=== PATIENT | female | born 1970 | race Caucasian/White ===

== ENCOUNTER 2020-02-21 18:52 | Emergency (ER) | payer MEDICAID ==
[~2020-02-21] VITALS: Ht 167.6 cm; Wt 62.1 kg
[2020-02-21] MEDS ORDERED: GABA-534 PO (19:15)
[2020-02-21] MEDS ORDERED: IBUP-1955 PO (19:15)
[2020-02-21] MEDS ORDERED: TRAZ150T75 PO (19:15)
[2020-02-21] MEDS ORDERED: BIRTH CONTROL (19:15)
[2020-02-21] MEDS ORDERED: ACYC800T PO (19:15)
[2020-02-21] MEDS ORDERED: ACETAMINOPHEN ES 500 MG TABLET PO ONE (19:45)
[2020-02-21] MEDS ORDERED: VANCOMYCIN IV 1,000 MG in IV DEXTROSE 5% 250 ML IV ONE (19:45)
[2020-02-21] MEDS ORDERED: METOCLOPRAMIDE HCL 10 MG/2 ML VIAL IV ONE (19:45)
[2020-02-21] MEDS ORDERED: MORPHINE SULFATE 2 MG/1 ML DISP.SYRIN IV ONE ×2 (19:45→22:45)
[2020-02-21] MEDS ORDERED: IV NORMAL SALINE 1000 ML BAG IV ONE (19:45)
[2020-02-21] MEDS ORDERED: FAMOTIDINE. 20 MG/2 ML VIAL IV ONE ×2 (19:45→19:56)
[2020-02-21] MEDS ORDERED: MORPHINE SULFATE 4 MG/1 ML DISP.SYRIN ONE (19:56)
[2020-02-21] MEDS ORDERED: ACETAMINOPHEN ES 500 MG TABLET ONE (19:56)
[2020-02-21] MEDS ORDERED: VANCOMYCIN IV 200 ML ONE (19:56)
[2020-02-21] MEDS ORDERED: METOCLOPRAMIDE HCL 10 MG/2 ML VIAL ONE (19:56)
[2020-02-21 19:59] LABS: BASOPHILS # (AUTO) 0.1 K/uL (0.0-8.0); BASOPHILS % (AUTO) 0.9 % (0.0-2.0); EOSINOPHILS # (AUTO) 0.3 K/uL (0.0-0.7); EOSINOPHILS % (AUTO) 3.3 % (0.0-7.0); HEMATOCRIT 32.5 % (31.2-41.9); HEMOGLOBIN 10.7 g/dL (10.9-14.3); LYMPHOCYTES # (AUTO) 1.9 K/uL (20.0-40.0); LYMPHOCYTES % (AUTO) 23.4 % (20.5-51.5); MEAN CORPUSCULAR HEMOGLOBIN 28.2 uug (24.7-32.8); MEAN CORPUSCULAR HGB CONC 33 g/dL (32.3-35.6); MEAN CORPUSCULAR VOLUME 85.5 fL (75.5-95.3); MONOCYTES # (AUTO) 0.6 K/uL (2.0-10.0); MONOCYTES % (AUTO) 7.6 % (0.0-11.0); NEUTROPHILS # (AUTO) 5.4 K/uL (1.8-8.9); NEUTROPHILS % (AUTO) 64.8 % (38.5-71.5); PLATELET COUNT (AUTO) 388 K/uL (179-408); RED BLOOD CELL COUNT(AUTO) 3.79 MIL/uL (3.63-4.92); WHITE BLOOD COUNT (AUTO) 8.3 K/uL (3.8-11.8)
[2020-02-21 20:01] LABS: *BILIRUBIN,URIN NEGATIVE (NEGATIVE); *BLOOD, URINE 2+ (NEGATIVE); *CLARITY,URINE TURBID (CLEAR); *COLOR,URINE YELLOW (YELLOW); *KETONES,URINE NEGATIVE (NEGATIVE); *UROBILINOGEN,URINE 0.2 E.U./dl (NORMAL); LEUKOCYTE ESTERASE ,URINE TRACE (NEGATIVE); NITRITE, URINE NEGATIVE (NEGATIVE); PH,URINE 5.5 (5.0-8.0); UGLUCOSE NEGATIVE (NEGATIVE)
[2020-02-21 20:09] LABS: CREATININE 0.9 mg/dL (0.6-1.3); POTASSIUM 3.8 mmol/L (3.5-5.1)
[2020-02-21 20:14] LABS: BILIRUBIN,DIRECT 0.1 mg/dL (0.0-0.2); BILIRUBIN,TOTAL 0.2 mg/dL (0.2-1.0); TOTAL PROTEIN, SERUM 6.7 g/dL (6.4-8.2)
[2020-02-21] MEDS ORDERED: ONDANSETRON 4 MG/2 ML VIAL IV ONE (20:15)
[2020-02-21] MEDS ORDERED: diphenhydrAMINE 50 MG/1 ML VIAL IV ONE (20:15)
[2020-02-21 20:17] LABS: BACTERIA,URINE NONE SEEN /HPF (NONE SEEN)
[2020-02-21 20:17] LABS: MAGNESIUM 1.8 mg/dL (1.8-2.4); PHOSPHOROUS 2.1 mg/dL (2.5-4.9)
[2020-02-21 20:18] LABS: *URINE HCG, QUAL NEGATIVE (NEGATIVE); SQUAMOUS EPITHELIAL CELL,UR MODERATE /HPF (NONE SEEN)
[2020-02-21] MEDS ORDERED: diphenhydrAMINE 50 MG/1 ML VIAL ONE (20:24)
[2020-02-21] MEDS ORDERED: ONDANSETRON 4 MG/2 ML VIAL ONE (20:24)
[2020-02-21] MEDS ORDERED: SWABABLE VALVE TRANSFER SET EA MC ONE (20:30)
[2020-02-21] MEDS ORDERED: NEUTRA PHOS PACKET PO ONE (20:30)
[2020-02-21] MEDS ORDERED: IOHEXOL 300MG/ML 100 ML INFUS..BTL ONE (20:30)
[2020-02-21] MEDS ORDERED: IV NORMAL SALINE 250 ML IV ONE (20:30)
[2020-02-21] MEDS ORDERED: HYDROMORPHONE 1 MG/1 ML DISP.SYRIN IV ONE (21:45)
[2020-02-21] MEDS ORDERED: HYDROMORPHONE 1 MG/1 ML DISP.SYRIN ONE (21:54)
[2020-02-21] MEDS ORDERED: NEUTRA PHOS PACKET ONE (22:11)
[2020-02-21] MEDS ORDERED: MORPHINE SULFATE 2 MG/1 ML DISP.SYRIN ONE (22:39)
--- NOTE | 2020-02-21 22:45 | NUR ---
Patient does not wish to proceed with medical care recommended by Dr. Rose. Patient given information related to possible complications, up to and including , which could occur as a result of leaving the hospital at this time. Patient verbalizes understanding of risks involved due to leaving against medical advice. Patient has signed AMA form.
--- NOTE | 2020-02-21 23:04 | NUR ---
Patient walked out of ER in stable condition. Friend is driving her home.
[2020-02-21 23:06] VITALS: BP 138/77
== END 2020-02-21 23:09 | disposition left against medical advice (07) ==
LOC: ER 18:56
DX: L03.211 Cellulitis of face (principal); K85.90 Acute pancreatitis without necrosis or infection, unspecified; K86.1 Other chronic pancreatitis; Z98.82 Breast implant status; E83.39 Other disorders of phosphorus metabolism
CPT/HCPCS: 36415; 70450; 74177; 80048; 80076; 81001; 83605; 83690; 83735; 84100; 84484; 84703; 85025; 87040 ×2; 93005; 96365; 96375; 96376; 99285; J1170; J1200; J2270 ×2; J2405; J2765; J3370; J3490; Q9967; 70030-TC; A4663; A9150; J7030; J7050

== ENCOUNTER 2020-02-22 15:06 | Emergency (ER) | payer MEDICAID ==
[~2020-02-22] VITALS: Ht 167.6 cm; Wt 62.1 kg
[~2020-02-22 15:06] MED LIST: ACYC800T PO; BIRTH CONTROL; GABA-534 PO; IBUP-1955 PO; TRAZ150T75 PO
[2020-02-22] MEDS ORDERED: HYDROMORPHONE 1 MG/1 ML DISP.SYRIN IV ONE ×2 (15:30→16:45)
[2020-02-22] MEDS ORDERED: VANCOMYCIN IV 1,000 MG in IV DEXTROSE 5% 250 ML IV ONE (15:30)
[2020-02-22] MEDS ORDERED: ONDANSETRON 4 MG/2 ML VIAL IV ONE (15:30)
[2020-02-22] MEDS ORDERED: VANCOMYCIN IV 200 ML ONE (15:39)
[2020-02-22] MEDS ORDERED: ONDANSETRON 4 MG/2 ML VIAL ONE (15:39)
[2020-02-22] MEDS ORDERED: HYDROMORPHONE 1 MG/1 ML DISP.SYRIN ONE ×2 (15:39→16:50)
[2020-02-22] MEDS ORDERED: METOCLOPRAMIDE HCL 10 MG/2 ML VIAL IV ONE (16:45)
[2020-02-22] MEDS ORDERED: diphenhydrAMINE 50 MG/1 ML VIAL IV ONE (16:45)
[2020-02-22] MEDS ORDERED: diphenhydrAMINE 50 MG/1 ML VIAL ONE (16:49)
[2020-02-22] MEDS ORDERED: METOCLOPRAMIDE HCL 10 MG/2 ML VIAL ONE (16:50)
--- NOTE | 2020-02-22 17:27 | NUR ---
Patient discharged to home in stable condition. Written and verbal after care instructions given. Patient verbalizes understanding of instructions. Stressed follow up or return to ER for worsening s/s. Pt states she has called for a ride to pick her from the ER.
--- NOTE | 2020-02-22 17:27 | NUR ---
IV removed. Catheter intact and site benign. Pressure and 4x4 gauze applied to site. No bleeding noted.
[2020-02-22 17:28] VITALS: BP 119/74
--- NOTE | 2020-02-22 17:30 | NUR ---
Pt has been discharged, pt requested to stay in room 4b until her ride arrives.
--- NOTE | 2020-02-22 18:00 | NUR ---
Pt ambulated out of ER with steady gait, NAD noted.
== END 2020-02-22 18:05 | disposition home or self-care (01) ==
LOC: ER 15:06
DX: L03.211 Cellulitis of face (principal); K86.1 Other chronic pancreatitis; Z98.82 Breast implant status; F41.9 Anxiety disorder, unspecified; Z59.0 Homelessness; Z79.899 Other long term (current) drug therapy
CPT/HCPCS: 96365; 96366; 96375; 96376; 99284; J1170 ×2; J1200; J2405; J2765; J3370; A4663

== ENCOUNTER 2020-02-25 09:55 | Emergency (ER) | payer MEDICAID ==
[~2020-02-25] VITALS: Ht 167.6 cm; Wt 59.0 kg
[2020-02-25] MEDS ORDERED: SULF1TAB48 PO (10:04)
[2020-02-25] MEDS ORDERED: CEPH-570 PO (10:04)
[2020-02-25] MEDS ORDERED: PIPERACILLIN/TAZOBACTAM/D5W 50 ML IV ONE (10:11)
[2020-02-25] MEDS ORDERED: VANCOMYCIN IV 200 ML ONE (10:11)
[2020-02-25] MEDS ORDERED: KETOROLAC TROMETHAMINE 30 MG INJ ONE ×2 (10:15→12:58)
[2020-02-25] MEDS ORDERED: ONDANSETRON 4 MG/2 ML VIAL ONE (10:15)
[2020-02-25] MEDS ORDERED: KETOROLAC TROMETHAMINE 30 MG INJ IVP ONE ×2 (10:15→13:00)
[2020-02-25] MEDS ORDERED: VANCOMYCIN IV 1,000 MG in IV DEXTROSE 5% 250 ML IV ONE (10:15)
[2020-02-25] MEDS ORDERED: PIPERACILLIN SODIUM/TAZOBACTAM 3.375 G in IV DEXTROSE 5% 50 ML IV ONE (10:15)
[2020-02-25] MEDS ORDERED: ONDANSETRON 4 MG/2 ML VIAL IV ONE (10:15)
--- NOTE | 2020-02-25 10:28 | NUR ---
ARRON LANIER CONTACTED THE INSURANCE, PLEASE SEE ARRON'S NOTES FOR DETAILS.
[2020-02-25 10:37] LABS: BASOPHILS # (AUTO) 0.1 K/uL (0.0-8.0); BASOPHILS % (AUTO) 0.8 % (0.0-2.0); EOSINOPHILS # (AUTO) 0.2 K/uL (0.0-0.7); EOSINOPHILS % (AUTO) 2.9 % (0.0-7.0); HEMATOCRIT 33.9 % (31.2-41.9); HEMOGLOBIN 11.3 g/dL (10.9-14.3); LYMPHOCYTES # (AUTO) 0.9 K/uL (20.0-40.0); LYMPHOCYTES % (AUTO) 13.2 % (20.5-51.5); MEAN CORPUSCULAR HEMOGLOBIN 28.2 uug (24.7-32.8); MEAN CORPUSCULAR HGB CONC 33 g/dL (32.3-35.6); MEAN CORPUSCULAR VOLUME 84.6 fL (75.5-95.3); MONOCYTES # (AUTO) 0.6 K/uL (2.0-10.0); MONOCYTES % (AUTO) 8.3 % (0.0-11.0); NEUTROPHILS # (AUTO) 5.3 K/uL (1.8-8.9); NEUTROPHILS % (AUTO) 74.8 % (38.5-71.5); PLATELET COUNT (AUTO) 339 K/uL (179-408); WHITE BLOOD COUNT (AUTO) 7.1 K/uL (3.8-11.8)
--- NOTE | 2020-02-25 10:38 | NUR ---
GERALD CALLED AND TALKED TO ARRON, ACCEPTING THE PT.
[2020-02-25 10:45] LABS: CREATININE 1.4 mg/dL (0.6-1.3); POTASSIUM 3.5 mmol/L (3.5-5.1)
--- NOTE | 2020-02-25 10:50 | NUR ---
pt requesting narcotic pain meds mutiple time. md notified.
[2020-02-25 10:52] LABS: BILIRUBIN,DIRECT 0.1 mg/dL (0.0-0.2); BILIRUBIN,TOTAL 0.2 mg/dL (0.2-1.0); TOTAL PROTEIN, SERUM 6.9 g/dL (6.4-8.2)
--- NOTE | 2020-02-25 10:57 | NUR ---
COLBY ESPINOZA TALKED TO DR. TIRADO PER INSURANCE REQUEST.
[2020-02-25] MEDS ORDERED: ACETAMINOPHEN ES 500 MG TABLET ONE (10:58)
--- NOTE | 2020-02-25 11:05 | NUR ---
PENG CALLED AND TALKED TO ARRON LANIER REGARDING TRANSFER OF THE PT: PT WILL BE GOING TO ROOM , REPORT NUMBER [phone], AMBULANCE ETA AT 1300.
[2020-02-25] MEDS ORDERED: ACETAMINOPHEN ES 500 MG TABLET PO ONE (11:30)
--- NOTE | 2020-02-25 12:55 | NUR ---
HOSPITAL LUNCH TRAY PROVIDED FOR PT PER PT REQUEST AND MD KUMAR.
--- NOTE | 2020-02-25 13:33 | NUR ---
AMBULANCE AT BEDSIDE TO TRANSFER THE PT.
--- NOTE | 2020-02-25 13:45 | NUR ---
PT TRANSFERED TO [facility] IN STABLE CONDITION.
--- NOTE | 2020-02-25 13:53 | NUR ---
REPORT GIVEN TO UBALDO THOMPSON AT [facility].
== END 2020-02-25 13:57 | disposition home or self-care (01) ==
LOC: ER 09:55
DX: L03.211 Cellulitis of face (principal); Z59.0 Homelessness; Z87.19 Personal history of other diseases of the digestive system; F41.9 Anxiety disorder, unspecified; Z79.899 Other long term (current) drug therapy; Z98.82 Breast implant status; Z88.8 Allergy status to other drugs, medicaments and biological substances
CPT/HCPCS: 36415; 80048; 80076; 83605; 84145; 85025; 87040 ×2; 96365; 96366; 96367; 96375; 96376; 99284; J1885 ×2; J2405; J2543; J3370; A4663; A9150